=== PATIENT | female | born 1960 | race Caucasian/White ===

== ENCOUNTER 2019-01-13 16:00 | Outpatient (CLI) | payer OTHER | END 2019-01-13 16:01 | disposition home or self-care (01) | LOC: SLEEPLAB 16:00 | PROVIDERS: ATTEND Internal Medicine | DX: G47.33 Obstructive sleep apnea (adult) (pediatric) (principal); G47.31 Primary central sleep apnea; R09.02 Hypoxemia | CPT/HCPCS: 95806 ==

== ENCOUNTER 2021-04-10 11:00 | Inpatient (IN) | payer OTHER ==
[2021-04-15] MEDS ORDERED: Protamine Sulfate 50 MG/5 ML VIAL ONE (08:42)
[2021-04-15] MEDS ORDERED: Bupivacaine PF 0.5% 30 ML VIAL ONE ×2 (08:42→12:08)
[2021-04-15] MEDS ORDERED: EPINEPHrine 1 MG/ML AMP ONE ×2 (08:42→12:08)
[2021-04-15] MEDS ORDERED: Dexamethasone 4 mg/ml Vial ONE (08:42)
[2021-04-15] MEDS ORDERED: Heparin 5,000 UNITS/ML VIAL ONE (08:42)
[2021-04-15] MEDS ORDERED: ceFAZolin 2 GM/DEX 5% 100 ML BAG ONE (09:21)
[2021-04-15] MEDS ORDERED: Fentanyl 100 MCG/2 ML VIAL ONE ×3 (09:41→13:04)
[2021-04-15] MEDS ORDERED: PROPOFOL 200 MG/20 ML VIAL ONE (10:03)
[2021-04-15] MEDS ORDERED: Glycopyrrolate 0.2 MG/ML 5 ML SYRINGE ONE (10:03)
[2021-04-15] MEDS ORDERED: Rocuronium Bromide 10 MG/ML (10ML VIAL) ONE (10:03)
[2021-04-15] MEDS ORDERED: Ketorolac Tromethamine 30 MG/ML VIAL ONE (10:03)
[2021-04-15] MEDS ORDERED: Ondansetron PF 4 MG/2 ML Vial ONE (10:03)
[2021-04-15] MEDS ORDERED: Labetalol HCl 100 MG/20 ML VIAL ONE (10:03)
[2021-04-15] MEDS ORDERED: Lidocaine 1% PF 5 ML VIAL ONE (10:03)
[2021-04-15] MEDS ORDERED: Dexamethasone 20 MG/5 ML VIAL ONE (10:03)
[2021-04-15] MEDS ORDERED: Phenylephrine 1% Nasal Spray 15 ML BOT ONE (10:27)
[2021-04-15] MEDS ORDERED: PHENYLEPHRINE-NS 100 MCG/ML 10 ML SYRINGE ONE (10:28)
[2021-04-15] MEDS ORDERED: Phenylephrine 10 MG/ML VIAL ONE (10:28)
[2021-04-15] MEDS ORDERED: Phenylephrine 40 MG in Sodium Chloride 0.9% 250 ML 250 ML IVPB PRN (12:12)
[2021-04-15] MEDS ORDERED: Fentanyl 100 MCG/2 ML VIAL SLOW IVP PRN (12:12)
[2021-04-15] MEDS ORDERED: Nitroglycerin 50 MG/250 ML BOT 250 ML IVPB PRN (12:12)
[2021-04-15] MEDS ORDERED: Acetaminophen 325 MG TAB PO PRN (12:12)
[2021-04-15] MEDS ORDERED: Ondansetron PF 4 MG/2 ML Vial IVP PRN (12:12)
[2021-04-15] MEDS ORDERED: traMADol HCl 50 MG TAB PO PRN (12:12)
[2021-04-15] MEDS ORDERED: Promethazine HCl 25 MG/ML VIAL IVPB PRN (12:22)
[2021-04-15] MEDS ORDERED: Ondansetron HCl/PF 4 MG/2 ML Vial IVP PRN (12:22)
[2021-04-15] MEDS ORDERED: Promethazine HCl 25 MG/ML VIAL IM PRN (12:22)
[2021-04-15] MEDS ORDERED: Acetaminophen 325 MG TAB ONE (13:45)
[2021-04-15] MEDS: Sodium Chloride 0.9% 1,000 ML IV SCH (14:42)
[2021-04-15] MEDS ORDERED: FLU VACC QS2021-22(6MOS UP)/PF 60 MCG/0.5 ML SYRINGE IM ONE (17:00)
[2021-04-15] MEDS: ceFAZolin Sodium/D5W 2 GM in Premix Bag 1 BAG IVPB SCH (17:01)
[2021-04-15] MEDS: Carvedilol 3.125 MG TAB PO SCH (20:08)
[2021-04-15] MEDS: Gabapentin 300 MG CAP PO SCH (20:08)
[2021-04-15] MEDS ORDERED: Rosuvastatin 20 MG TAB PO SCH (21:00)
[2021-04-16] MEDS: ceFAZolin Sodium/D5W 2 GM in Premix Bag 1 BAG IVPB SCH ×2 (00:10→07:32)
[2021-04-16] MEDS: Sodium Chloride 0.9% 1,000 ML IV SCH ×2 (06:11→08:45)
[2021-04-16 08:30] VITALS: TEMP 98.2
[2021-04-16] MEDS: Gabapentin 300 MG CAP PO SCH (08:39)
[2021-04-16] MEDS: Carvedilol 3.125 MG TAB PO SCH (08:41)
[2021-04-16] MEDS ORDERED: Clopidogrel Bisulfate 75 MG TAB PO SCH (09:00)
[2021-04-16] MEDS ORDERED: Aspirin 81 mg Enteric Coated Tablet PO SCH (09:00)
== END 2021-04-16 08:54 | disposition home or self-care (01) | DRG 39 ==
LOC: SURG A 04-15 07:57 → EDSTATUS 04-15 11:00 → CCU 04-15 14:38
PROVIDERS: ADMIT Thoracic Surgery (Cardiothoracic Vascular Surgery); ATTEND Thoracic Surgery (Cardiothoracic Vascular Surgery)
PROC: 03CL0ZZ Extirpation of Matter from Left Internal Carotid Artery, Open Approach (ICD-10-PCS; principal; 2021-04-15)
PROC: 03UL0KZ Supplement Left Internal Carotid Artery with Nonautologous Tissue Substitute, Open Approach (ICD-10-PCS; 2021-04-15)
PROC: B3141ZZ Fluoroscopy of Left Common Carotid Artery using Low Osmolar Contrast (ICD-10-PCS; 2021-04-15)
DX: I65.22 Occlusion and stenosis of left carotid artery (principal); Z53.39 Other specified procedure converted to open procedure; I10 Essential (primary) hypertension; E78.5 Hyperlipidemia, unspecified; E11.9 Type 2 diabetes mellitus without complications; F41.9 Anxiety disorder, unspecified; Z82.49 Family history of ischemic heart disease and other diseases of the circulatory system; Z83.3 Family history of diabetes mellitus; Z80.9 Family history of malignant neoplasm, unspecified; Z79.899 Other long term (current) drug therapy; Z86.16 Personal history of COVID-19; Z79.02 Long term (current) use of antithrombotics/antiplatelets
CPT/HCPCS: 76000; 94640; C1725; J0171; J1100; J1642; J1644; J1885; J2370; J2405; J2704; J2720; J3010; J7050; J7620; S0020

== ENCOUNTER 2021-04-10 11:36 | Outpatient (CLI) | payer SELFPAY ==
[2021-04-10 13:26] LABS: Hemoglobin 9.9 g/dL (12.0-15.5); Mean Corpuscular HGB CONC 30.1 g/dL (32.0-36.0); Mean Corpuscular Hemoglobin 29.6 pg (27.0-33.0); Mean Corpuscular Volume 98.2 fl (81.6-98.3); Mean Platelet Volume 11.6 fl (7.4-10.4); Platelet Count 191 10x3/uL (150-450); RBC Distribution Width 11.6 % (11.5-14.5); Red Blood Cell (RBC) Count 3.35 10x6/uL (3.90-5.03); White Blood Cell (WBC) Count 4.8 10x3/uL (3.5-10.5)
[2021-04-10 13:45] LABS: Anion Gap 12 mmol/L (10-20); BUN (Urea Nitrogen) 22 mg/dL (9.8-20.1); Calc. Creatinine Clearance 0 mL/min (70-130); Calcium 9.3 mg/dL (7.8-10.44); Carbon Dioxide 29 mmol/L (23-31); Chloride 108 mmol/L (98-107); Glucose 128 mg/dL (80-115); Potassium 5.6 mmol/L (3.5-5.1); Sodium 143 mmol/L (136-145)
[2021-04-11 01:42] LABS: SARS-CoV-2 PCR by NAA Not Detected (NotDetected)
== END 2021-04-10 11:37 | disposition home or self-care (01) ==
LOC: LABBT 11:36
PROVIDERS: ATTEND Thoracic Surgery (Cardiothoracic Vascular Surgery)
DX: Z01.812 Encounter for preprocedural laboratory examination (principal); Z20.822 Contact with and (suspected) exposure to COVID-19
CPT/HCPCS: 80048; 85027; U0003; U0005

== ENCOUNTER 2023-03-15 14:15 | Inpatient (IN) | payer MEDICARE, SELFPAY ==
[2023-03-15] MEDS ORDERED: Heparin 25,000 units/D5W 500 ML ONE (15:02)
[2023-03-15 17:06] LABS: Troponin I 2.777 ng/mL (< 0.028)
[2023-03-15 17:20] LABS: ALT (SGPT) 24 U/L (8-55); AST (SGOT) 30 U/L (5-34); Albumin 3.2 g/dL (3.4-4.8); Alkaline Phosphatase 96 U/L (40-110); Anion Gap 22 mmol/L (10-20); BUN (Urea Nitrogen) 68 mg/dL (9.8-20.1); Bilirubin, Total 0.2 mg/dL (0.2-1.2); Calc. Creatinine Clearance 0 mL/min (70-130); Carbon Dioxide 13 mmol/L (23-31); Chloride 100 mmol/L (98-107); Estimated GFR 12; Globulin 2.8 g/dL (2.4-3.5); Glucose 88 mg/dL (80-115); Lipase 56 U/L (8-78); Potassium 4.8 mmol/L (3.5-5.1); Sodium 130 mmol/L (136-145)
[2023-03-15] MEDS ORDERED: Heparin 10,000 UNITS/ 10 ML VIAL SLOW IVP SCH (17:30)
[2023-03-15] MEDS ORDERED: Heparin 25,000 units/D5W 500 ML IVPB SCH (17:30)
[2023-03-15 18:01] LABS: #Monocytes 0.3 thou/uL (0.11-0.59); #Neutrophils 4.4 thou/uL (1.40-6.50); %Basophils 0.2 % (0.0-1.0); %Lymphocytes 19.5 % (21.0-51.0); %Monocytes 5.2 % (0.0-10.0); %Neutrophils 74.8 % (42.0-75.0); Hematocrit 28.5 % (36.0-47.0); Hemoglobin 8.7 g/dL (12.0-16.0); Mean Corpuscular HGB CONC 30.5 g/dL (32.0-36.0); Mean Corpuscular Hemoglobin 30.6 pg (27.0-31.0); Mean Corpuscular Volume 100.4 fl (78.0-98.0); Mean Platelet Volume 11.5 fL (7.4-10.4); Platelet Count 207 10x3/uL (130-400); Red Blood Cell (RBC) Count 2.84 mill/uL (4.20-5.40); White Blood Cell (WBC) Count 5.9 10x3/uL (4.8-10.8)
[2023-03-15 18:15] LABS: INR-International Normal Ratio 1.1; Prothrombin Time 14.7 sec (12.0-14.7)
[2023-03-15 18:32] LABS: PTT 144.4 sec (22.9-36.1)
[2023-03-15 18:51] LABS: Troponin I 2.804 ng/mL (< 0.028)
[2023-03-15] MEDS ORDERED: Ondansetron ODT 4 MG TAB SL PRN (19:15)
[2023-03-15] MEDS ORDERED: Ondansetron PF 4 MG/2 ML Vial IVP PRN (19:15)
[2023-03-15 19:16] VITALS: BMI 26.3
[2023-03-15] MEDS: Sodium Chloride 0.9% 1,000 ML IV SCH (19:20)
[2023-03-15] MEDS: Gabapentin 400 MG CAP PO SCH (20:33)
[2023-03-15] MEDS: Rosuvastatin 20 MG TAB PO SCH (20:34)
[2023-03-15 21:46] LABS: Troponin I 3.003 ng/mL (< 0.028)
[2023-03-15 23:01] LABS: Anion Gap 21 mmol/L (10-20); BUN (Urea Nitrogen) 64 mg/dL (9.8-20.1); Calc. Creatinine Clearance 16 mL/min (70-130); Calcium 8.1 mg/dL (7.8-10.44); Carbon Dioxide 16 mmol/L (23-31); Chloride 102 mmol/L (98-107); Estimated GFR 12; Glucose 79 mg/dL (80-115); Potassium 4.5 mmol/L (3.5-5.1); Sodium 134 mmol/L (136-145)
[2023-03-15] MEDS: HYDROcodone/Acetaminophen 10/325 mg Tablet PO PRN (23:04)
[2023-03-16] MEDS: Sodium Chloride 0.9% 1,000 ML IV SCH ×3 (02:46→18:08)
[2023-03-16 05:22] LABS: #Monocytes 0.4 thou/uL (0.11-0.59); #Neutrophils 6.2 thou/uL (1.40-6.50); %Basophils 0.1 % (0.0-1.0); %Eosinophils 0.2 % (0.0-10.0); %Lymphocytes 18.9 % (21.0-51.0); %Monocytes 4.4 % (0.0-10.0); Hematocrit 29.9 % (36.0-47.0); Hemoglobin 9.2 g/dL (12.0-16.0); Mean Corpuscular HGB CONC 30.8 g/dL (32.0-36.0); Mean Corpuscular Hemoglobin 29.8 pg (27.0-31.0); Mean Platelet Volume 11.9 fL (7.4-10.4); Platelet Count 243 10x3/uL (130-400); RBC Distribution Width 13.2 % (11.5-14.5); Red Blood Cell (RBC) Count 3.09 mill/uL (4.20-5.40); White Blood Cell (WBC) Count 8.2 10x3/uL (4.8-10.8)
[2023-03-16 05:27] LABS: Mean Corpuscular Volume 96.8 fl (78.0-98.0)
[2023-03-16 05:47] LABS: Troponin I 3.168 ng/mL (< 0.028)
[2023-03-16 07:23] LABS: Albumin 3.4 g/dL (3.4-4.8); Anion Gap 18 mmol/L (10-20); Calcium 7.9 mg/dL (7.8-10.44); Carbon Dioxide 18 mmol/L (23-31); Chloride 101 mmol/L (98-107); Globulin 2.6 g/dL (2.4-3.5); Glucose 75 mg/dL (80-115); Potassium 4.7 mmol/L (3.5-5.1); Sodium 132 mmol/L (136-145)
[2023-03-16 07:24] LABS: ALT (SGPT) 22 U/L (8-55); AST (SGOT) 32 U/L (5-34); Alkaline Phosphatase 95 U/L (40-110); BUN (Urea Nitrogen) 63 mg/dL (9.8-20.1); Bilirubin, Total 0.2 mg/dL (0.2-1.2); Calc. Creatinine Clearance 19 mL/min (70-130); Estimated GFR 15
[2023-03-16] MEDS: Aspirin 81 mg Enteric Coated Tablet PO SCH (09:40)
[2023-03-16] MEDS: Gabapentin 400 MG CAP PO SCH ×2 (09:40→20:08)
[2023-03-16] MEDS: Sertraline 100 MG TAB PO SCH (09:41)
[2023-03-16 11:51] LABS: PTT 164.7 sec (22.9-36.1)
[2023-03-16] MEDS ORDERED: Albuterol 200 PUFF (6.7GM INHALER) INH PRN (12:29)
[2023-03-16] MEDS ORDERED: Benzocaine/Menthol 1 LOZ LOZ PO PRN (16:50)
[2023-03-16] MEDS: Carvedilol 3.125 MG TAB PO SCH (18:06)
[2023-03-16] MEDS: HYDROcodone/Acetaminophen 10/325 mg Tablet PO PRN (18:06)
[2023-03-16] MEDS: Rosuvastatin 20 MG TAB PO SCH (20:08)
[2023-03-16] MEDS: guaiFENesin ER 600 MG TAB PO SCH (20:08)
[2023-03-16] MEDS: Heparin 5,000 UNITS/ML VIAL SC SCH (20:08)
[2023-03-16] MEDS: Benzonatate 100 MG CAP PO SCH (20:08)
[2023-03-17] MEDS: Sodium Chloride 0.9% 1,000 ML IV SCH ×3 (02:04→16:08)
[2023-03-17] MEDS: HYDROcodone/Acetaminophen 10/325 mg Tablet PO PRN ×2 (02:05→19:23)
[2023-03-17 04:51] LABS: #Monocytes 0.4 thou/uL (0.11-0.59); #Neutrophils 2.6 thou/uL (1.40-6.50); %Basophils 0.3 % (0.0-1.0); %Lymphocytes 23.5 % (21.0-51.0); %Neutrophils 65.9 % (42.0-75.0); Hematocrit 28.2 % (36.0-47.0); Hemoglobin 8.7 g/dL (12.0-16.0); Mean Corpuscular HGB CONC 30.9 g/dL (32.0-36.0); Mean Corpuscular Hemoglobin 29.6 pg (27.0-31.0); Mean Corpuscular Volume 95.9 fl (78.0-98.0); Mean Platelet Volume 11.4 fL (7.4-10.4); Platelet Count 234 10x3/uL (130-400); RBC Distribution Width 13.2 % (11.5-14.5); Red Blood Cell (RBC) Count 2.94 mill/uL (4.20-5.40)
[2023-03-17 05:29] LABS: ALT (SGPT) 20 U/L (8-55); AST (SGOT) 23 U/L (5-34); Albumin 3.1 g/dL (3.4-4.8); Alkaline Phosphatase 94 U/L (40-110); Anion Gap 15 mmol/L (10-20); BUN (Urea Nitrogen) 48 mg/dL (9.8-20.1); Bilirubin, Total 0.2 mg/dL (0.2-1.2); Calc. Creatinine Clearance 32 mL/min (70-130); Calcium 8.2 mg/dL (7.8-10.44); Carbon Dioxide 20 mmol/L (23-31); Chloride 110 mmol/L (98-107); Estimated GFR 27; Globulin 2.5 g/dL (2.4-3.5); Glucose 112 mg/dL (80-115); Potassium 4.2 mmol/L (3.5-5.1); Protein, Total 5.6 g/dL (5.8-8.1); Sodium 141 mmol/L (136-145)
[2023-03-17] MEDS ORDERED: Isosorbide Mononitrate 30 MG ER.TAB PO SCH (09:00)
[2023-03-17] MEDS: Heparin 5,000 UNITS/ML VIAL SC SCH ×2 (09:54→20:43)
[2023-03-17] MEDS: Gabapentin 400 MG CAP PO SCH ×2 (09:55→20:42)
[2023-03-17] MEDS: Benzonatate 100 MG CAP PO SCH ×3 (09:56→20:42)
[2023-03-17] MEDS: Aspirin 81 mg Enteric Coated Tablet PO SCH (09:56)
[2023-03-17] MEDS: Carvedilol 3.125 MG TAB PO SCH ×2 (09:56→16:07)
[2023-03-17] MEDS: Multivitamin W/ Minerals 1 TAB PO SCH (09:56)
[2023-03-17] MEDS: guaiFENesin ER 600 MG TAB PO SCH ×2 (09:56→20:43)
[2023-03-17] MEDS: Ascorbic Acid 500 mg Chewable Tablet PO SCH (09:56)
[2023-03-17] MEDS: Sertraline 100 MG TAB PO SCH (09:56)
[2023-03-17] MEDS ORDERED: Sodium Chloride 0.9% 1,000 ML IV SCH (16:37)
[2023-03-17] MEDS: Rosuvastatin 20 MG TAB PO SCH (20:42)
[2023-03-17] MEDS ORDERED: cloNIDine 0.1 MG TAB PO SCH (21:30)
[2023-03-18 04:31] LABS: #Eosinphils 0.1 thou/uL (0.0-0.7); #Monocytes 0.4 thou/uL (0.11-0.59); #Neutrophils 2.4 thou/uL (1.40-6.50); %Basophils 0.3 % (0.0-1.0); %Eosinophils 1.5 % (0.0-10.0); %Lymphocytes 27.6 % (21.0-51.0); %Monocytes 9.4 % (0.0-10.0); %Neutrophils 60.9 % (42.0-75.0); Hemoglobin 8.4 g/dL (12.0-16.0); Mean Corpuscular HGB CONC 31.1 g/dL (32.0-36.0); Mean Corpuscular Volume 96.4 fl (78.0-98.0); Mean Platelet Volume 10.9 fL (7.4-10.4); Platelet Count 260 10x3/uL (130-400); RBC Distribution Width 13.2 % (11.5-14.5)
[2023-03-18 04:54] LABS: ALT (SGPT) 15 U/L (8-55); AST (SGOT) 18 U/L (5-34); Albumin 3.2 g/dL (3.4-4.8); Alkaline Phosphatase 83 U/L (40-110); Anion Gap 14 mmol/L (10-20); BUN (Urea Nitrogen) 34 mg/dL (9.8-20.1); Bilirubin, Total 0.2 mg/dL (0.2-1.2); Calc. Creatinine Clearance 42 mL/min (70-130); Calcium 8.5 mg/dL (7.8-10.44); Carbon Dioxide 22 mmol/L (23-31); Chloride 111 mmol/L (98-107); Estimated GFR 38; Globulin 2.4 g/dL (2.4-3.5); Glucose 106 mg/dL (80-115); Potassium 4.4 mmol/L (3.5-5.1); Protein, Total 5.6 g/dL (5.8-8.1); Sodium 143 mmol/L (136-145)
[2023-03-18] MEDS ORDERED: Carvedilol 3.125 MG TAB PO SCH (06:55)
[2023-03-18] MEDS ORDERED: FLU VACC QS2023(65UP)/MF59C/PF 60 MCG/0.5 ML SYRINGE IM ONE (09:00)
[2023-03-18] MEDS: Ascorbic Acid 500 mg Chewable Tablet PO SCH (09:13)
[2023-03-18] MEDS: Multivitamin W/ Minerals 1 TAB PO SCH (09:13)
[2023-03-18] MEDS: Heparin 5,000 UNITS/ML VIAL SC SCH ×2 (09:13→20:50)
[2023-03-18] MEDS: guaiFENesin ER 600 MG TAB PO SCH ×2 (09:14→20:47)
[2023-03-18] MEDS: Gabapentin 400 MG CAP PO SCH ×2 (09:14→20:47)
[2023-03-18] MEDS: Aspirin 81 mg Enteric Coated Tablet PO SCH (09:14)
[2023-03-18] MEDS: Acetaminophen 325 MG TAB PO PRN (09:14)
[2023-03-18] MEDS: Benzonatate 100 MG CAP PO SCH ×3 (09:15→20:47)
[2023-03-18] MEDS: Sertraline 100 MG TAB PO SCH (09:15)
[2023-03-18] MEDS: Carvedilol 25 MG TAB PO SCH ×2 (09:15→17:48)
[2023-03-18] MEDS: Sacubitril 24MG/Valsartan 26 MG TAB PO SCH (20:47)
[2023-03-18] MEDS: HYDROcodone/Acetaminophen 10/325 mg Tablet PO PRN (20:48)
[2023-03-18] MEDS: Rosuvastatin 20 MG TAB PO SCH (20:58)
[2023-03-19] MEDS: HYDROcodone/Acetaminophen 10/325 mg Tablet PO PRN (05:28)
[2023-03-19 07:34] LABS: Anion Gap 12 mmol/L (10-20); BUN (Urea Nitrogen) 26 mg/dL (9.8-20.1); Calc. Creatinine Clearance 44 mL/min (70-130); Calcium 8.5 mg/dL (7.8-10.44); Carbon Dioxide 23 mmol/L (23-31); Chloride 108 mmol/L (98-107); Estimated GFR 41; Glucose 94 mg/dL (80-115); Potassium 4.3 mmol/L (3.5-5.1); Sodium 139 mmol/L (136-145)
[2023-03-19] MEDS: Sertraline 100 MG TAB PO SCH (08:53)
[2023-03-19] MEDS: Gabapentin 400 MG CAP PO SCH ×2 (08:53→20:06)
[2023-03-19] MEDS: Sacubitril 24MG/Valsartan 26 MG TAB PO SCH (08:53)
[2023-03-19] MEDS: Carvedilol 25 MG TAB PO SCH (08:54)
[2023-03-19] MEDS: Benzonatate 100 MG CAP PO SCH ×3 (08:56→20:06)
[2023-03-19] MEDS: Multivitamin W/ Minerals 1 TAB PO SCH (08:57)
[2023-03-19] MEDS: guaiFENesin ER 600 MG TAB PO SCH ×2 (08:57→20:06)
[2023-03-19] MEDS: Aspirin 81 mg Enteric Coated Tablet PO SCH (08:57)
[2023-03-19] MEDS: Heparin 5,000 UNITS/ML VIAL SC SCH ×2 (08:57→20:06)
[2023-03-19] MEDS: Ascorbic Acid 500 mg Chewable Tablet PO SCH (08:57)
[2023-03-19] MEDS ORDERED: Empagliflozin 10 MG TAB PO SCH (09:00)
[2023-03-19] MEDS ORDERED: Carvedilol 25 MG TAB PO SCH ×2 (12:00→17:00)
[2023-03-19] MEDS: Acetaminophen 325 MG TAB PO PRN (15:39)
[2023-03-19 20:03] VITALS: TEMP 97.9
[2023-03-19] MEDS: Rosuvastatin 20 MG TAB PO SCH (20:06)
[2023-03-19 20:12] VITALS: BP 175/81
[2023-03-19] MEDS ORDERED: Sacubitril 49 MG/Valsartan 51 MG TABLET PO SCH (21:00)
[2023-03-20] MEDS ORDERED: Empagliflozin 10 MG TAB PO SCH (09:00)
== END 2023-03-19 20:25 | disposition home or self-care (01) | DRG 177 ==
LOC: SUATTDRO 14:15 → ERS 14:15 → 2NO 16:56
PROVIDERS: ADMIT Family Medicine; ATTEND Internal Medicine
DX: U07.1 COVID-19 (principal); I21.A1 Myocardial infarction type 2; N17.9 Acute kidney failure, unspecified; E87.1 Hypo-osmolality and hyponatremia; E87.20 Acidosis, unspecified; I42.8 Other cardiomyopathies; E78.5 Hyperlipidemia, unspecified; F32.A Depression, unspecified; N18.30 Chronic kidney disease, stage 3 unspecified; I12.9 Hypertensive chronic kidney disease with stage 1 through stage 4 chronic kidney disease, or unspecified chronic kidney disease; D63.1 Anemia in chronic kidney disease; E11.22 Type 2 diabetes mellitus with diabetic chronic kidney disease; E86.0 Dehydration; Z79.82 Long term (current) use of aspirin; Z79.899 Other long term (current) drug therapy; Z90.49 Acquired absence of other specified parts of digestive tract; Z90.89 Acquired absence of other organs; Z98.890 Other specified postprocedural states; Z89.421 Acquired absence of other right toe(s); G89.29 Other chronic pain; E11.51 Type 2 diabetes mellitus with diabetic peripheral angiopathy without gangrene
CPT/HCPCS: 36415; 36416; 71045; 80048; 80053; 82140; 83605; 83615; 83690; 83880; 84145; 84484; 85025; 85610; 85730; 86140; 87040; 87149; 93005; 93306; 96365; 96366; J1644; J7050

== ENCOUNTER 2023-05-19 12:08 | Outpatient (CLI) | payer MEDICARE ==
[2023-05-19 13:57] LABS: Hematocrit 36.1 % (34.9-44.5); Hemoglobin 11.2 g/dL (12.0-15.5)
[2023-05-19 14:21] LABS: Prothrombin Time 10.8 sec (9.5-12.1)
[2023-05-19 14:26] LABS: Anion Gap 15 mmol/L (10-20); BUN (Urea Nitrogen) 44 mg/dL (9.8-20.1); Calc. Creatinine Clearance 0 mL/min (70-130); Calcium 9.3 mg/dL (7.8-10.44); Carbon Dioxide 29 mmol/L (23-31); Chloride 100 mmol/L (98-107); Estimated GFR 23; Glucose 200 mg/dL (80-115); Sodium 139 mmol/L (136-145)
== END 2023-05-19 12:09 | disposition home or self-care (01) ==
LOC: LABBT 12:08
PROVIDERS: ATTEND Internal Medicine Cardiovascular Disease
DX: Z01.812 Encounter for preprocedural laboratory examination (principal)
CPT/HCPCS: 80048; 85014; 85018; 85610